=== PATIENT | male | born 1985 | race Caucasian/White ===

== ENCOUNTER 2018-02-03 09:34 | Emergency (ER) | payer MEDICAID ==
[~2018-02-03] VITALS: Ht 175.3 cm; Wt 68.2 kg
[2018-02-03 09:58] LABS: BASOPHILS # (AUTO) 0.1 X10'3 (0-0.2); BASOPHILS % (AUTO) 1.5 % (0-1); EOSINOPHILS # (AUTO) 0.1 X10'3 (0-0.9); EOSINOPHILS % (AUTO) 1.7 % (0-6); HEMATOCRIT 47.5 % (42.0-52.0); HEMOGLOBIN 16.1 g/dl (14.0-17.9); LYMPHOCYTES # (AUTO) 3.1 X10'3 (1.1-4.8); LYMPHOCYTES % (AUTO) 36.7 % (21-51); MEAN CORPUSCULAR HEMOGLOBIN 31.2 PG (27.0-31.0); MEAN CORPUSCULAR HGB CONC 33.8 % (33.0-36.5); MEAN CORPUSCULAR VOLUME 92.3 FL (78-98); MEAN PLATELET VOLUME 7.6 FL (7.4-10.4); MONOCYTES # (AUTO) 0.6 X10'3 (0-0.9); MONOCYTES % (AUTO) 7.3 % (2-12); NEUTROPHILS # (AUTO) 4.5 X10'3 (1.8-7.7); NEUTROPHILS % (AUTO) 52.8 % (42-75); PLATELET COUNT 237 X10'3 (140-440); RED BLOOD COUNT 5.15 X10'6 (4.70-6.10); WHITE BLOOD COUNT 8.5 X10'3 (4.5-11.0)
[2018-02-03 10:12] LABS: ALANINE AMINOTRANSFERASE 27 U/L (12-78); ALBUMIN 4.1 G/DL (3.4-5.0); ALBUMIN/GLOBULIN RATIO 1.2 (1.1-1.5); ALKALINE PHOSPHATASE 70 IU/L (46-116); ANION GAP 10 (8-16); ASPARTATE AMINO TRANSFERASE 18 U/L (10-37); BILIRUBIN,TOTAL 0.6 MG/DL (0.1-1.0); BLOOD UREA NITROGEN 5 MG/DL (7-18); BUN/CREATININE RATIO 3.6 (5.4-32.0); CALCIUM 9.3 MG/DL (8.5-10.1); CHLORIDE 102 MMOL/L (99-107); GLUCOSE 177 MG/DL (70-104); POTASSIUM 3.6 MMOL/L (3.5-5.1); SODIUM 139 MMOL/L (135-145); TOTAL CARBON DIOXIDE 27.3 MMOL/L (24-32); TOTAL PROTEIN 7.6 G/DL (6.4-8.2); eGFR 58 ML/MIN
[2018-02-03 10:23] LABS: CLARITY,URINE SLIGHTLY CLOUDY (Clear); COLOR,URINE YELLOW (Yellow); GLUCOSE, URINE NEGATIVE (Neg); KETONES,URINE TRACE mg/dl (Neg); LEUKOCYTE ESTERASE ,URINE NEGATIVE (Neg); NITRITES, URINE NEGATIVE (Neg); OCCULT BLOOD,URINE LARGE (Neg); PH,URINE >=9.0 (4.8-8.0); PROTEIN,URINE 100 mg/dl (Neg); UROBILINOGEN,URINE 0.2 E.U/dL (0.2-1.0)
[2018-02-03] MEDS ORDERED: ketorolac trometh. 30mg/ml inj. IV ONE (10:30)
[2018-02-03] MEDS ORDERED: ondansetron/PF 4mg/2ml inj IV ONE (10:30)
[2018-02-03] MEDS ORDERED: normal saline 1000ML IV soln IVB ONE (10:30)
[2018-02-03] MEDS ORDERED: ketorolac tromethamine 15mg/ml inj. IV ONE (10:35)
[2018-02-03 10:42] LABS: UA COLLECTION TYPE CLN CATCH MIDSTREAM
[2018-02-03 10:47] LABS: RBC,URINE 20-50 /HPF (0-2); SQUAMOUS EPITHELIAL CELL,UR FEW /LPF (FEW)
[2018-02-03 10:48] LABS: BACTERIA,URINE FEW /HPF (Neg)
[2018-02-03 10:49] LABS: AMORPHOUS PHOSPHATES 2+
[2018-02-03] MEDS ORDERED: HYDR-565 PO (11:46)
[2018-02-03] MEDS ORDERED: IBUP-1985 PO (11:46)
[2018-02-03] MEDS ORDERED: FLO0.4C PO (11:46)
[2018-02-03 12:20] VITALS: BP 127/68
== END 2018-02-03 12:21 | disposition home or self-care (01) ==
LOC: ER 09:34
DX: N20.0 Calculus of kidney (principal); Z87.442 Personal history of urinary calculi; Z79.899 Other long term (current) drug therapy
CPT/HCPCS: 36415; 74018; 74176; 80053; 81001; 85025; 87088; 96374; 96375; 99285; J1885; J2405; J7030

== ENCOUNTER 2025-01-19 12:01 | Emergency (ER) | payer MEDICAID ==
[~2025-01-19] VITALS: Ht 175.3 cm; Wt 72.8 kg
[~2025-01-19 12:01] MED LIST: IBUP-1985 PO
[2025-01-19 12:37] LABS: MEAN PLATELET VOLUME 7.2 FL (7.4-10.4); RED CELL DISTRIBUTION WIDTH 13.3 % (11.5-14.5)
[2025-01-19 12:53] LABS: CREATININE 1.17 MG/DL (0.60-1.10); TOTAL CARBON DIOXIDE 30.1 MMOL/L (24-32); eCRCL 84 ML/MIN; eGFR 69 ML/MIN
--- NOTE | 2025-01-19 13:35 | Physician Documentation ---
History of Present Illness Chief Complaint: Abdominal Pain Stated Complaint: ABDOMINAL PAIN X5 DAYS Time Seen by MD: 13:11 Primary Medical Doctor: NONE HPI Year old male presents to the ER with complaints of abdominal pain x5 days. Patient reports that his abdominal pain is located in the lower left quadrant of his abdomen. Patient reports that the pain has not migrated to any other loc ations with the in his abdomen over the course of the five days and has remained isolated to the lower left quadrant. Patient denies fever nausea vomiting diarrhea her any other accompanying symptoms at this time. The patient reports that he ate at [employer] approximately five days ago while traveling with his brother here within an hour developed acute abdominal pain that has remained constant. Patient has tried [id number] pain relievers without any relief. Patient denies any other significant past medical history at this time. Medication Reconciliation Allergies: Coded Allergies: No Known Allergies (Unverified , 01/19/25) Scheduled Amox Tr/Potassium Clavulanate 875/125 MG (Augmentin 875/125 MG), 1 TAB PO Q12H Ibuprofen (Ibuprofen), 1 TAB PO Q8H Past Medical History Past Medical History: Kidney Stones Past Surgical History: no surgical history Drug Use: none Lives In: Home Occupation: employed Physical Exam Vital Signs: Temperature: 98.3, Source: Temporal, Heart Rate: 89, Respiratory Rate: 18, BP: 118/74, Pulse Oximetry: 98, Weight: 72.800 Physical Exam VITALS: Reviewed and as above. GENERAL: Alert, no apparent distress. HEENT: Normocephalic, atraumatic, PERRL, EOMI, dry mucosa, no erythema RESPIRATORY: Lungs clear, normal breath sounds, no respiratory distress. CHEST: No accessory muscle use, no retractions CV: Regular rate, rhythm, no edema, no murmur, No: JVD GI: Soft, non-tender, bowels sounds present, pain with palpation over the left lower quadrant BACK: No CVA tenderness, or swelling MUSCULOSKELETAL No deformities, no edema SKIN: Warm and dry, no rash NEURO: Oriented x4, No motor or sensory deficit PSYCH: Normal mood and affect, no agitation Progress Results/Orders Results/Orders Vital Signs 01/19/25 12:13 Temp 98.3 Pulse 89 Resp 18 B/P (MAP) 118/74 Pulse Ox 98 Laboratory Tests Test 01/19/25 12:24 White Blood Count 14.0 H Red Blood Count 4.88 Hemoglobin 15.3 Hematocrit 44.5 Mean Corpuscular Volume 91.3 Mean Corpuscular Hemoglobin 31.3 H Mean Corpuscular Hemoglobin Concent 34.3 Red Cell Distribution Width 13.3 Platelet Count 220 Mean Platelet Volume 7.2 L Neutrophils (%) (Auto) 69.0 Lymphocytes (%) (Auto) 17.7 L Monocytes (%) (Auto) 11.5 Eosinophils (%) (Auto) 0.9 Basophils (%) (Auto) 0.9 Neutrophils # (Auto) 9.7 H Lymphocytes # (Auto) 2.5 Monocytes # (Auto) 1.6 H Eosinophils # (Auto) 0.1 Basophils # (Auto) 0.1 CBC Comment Sodium Level 137 Potassium Level 3.9 Chloride Level 102 Carbon Dioxide Level 30.1 Anion Gap 5 L Blood Urea Nitrogen 8 Creatinine 1.17 H Estimated GFR/1.73 m2 69 BUN/Creatinine Ratio 6.8 L Glucose Level 87 Calcium Level 8.8 Total Bilirubin 0.9 Aspartate Amino Transf (AST/SGOT) 13 Alanine Aminotransferase (ALT/SGPT) 25 Alkaline Phosphatase 81 Total Protein 7.3 Albumin 3.6 Globulin 3.7 Albumin/Globulin Ratio 1.0 L Amylase Level 30 Lipase 19 Chemistry Comments Medical Decision Making Findings Abdominal exam without peritoneal signs. No evidence of acute abdomen at this time. Well appearing. Given work up, low suspicion for acute hepatobiliary disease (including acute cholecystitis or cholangitis), acute pancreatitis (neg lipase), PUD (including gastric perforation), acute infectious processes (pneumonia, hepatitis, pyelonephritis), acute appendicitis, vascular catastrophe, bowel obstruction, viscus perforation, or testicular torsion. Presentation and diagnostics most consistant with an acute episode of diverticulitis. Presentation not consistent with other acute, emergent causes of abdominal pain at this time. Departure Disposition: 01 HOME / SELF CARE / HOMELESS Impression: Primary Impression: Diverticulitis Condition: Stable Discharge Instructions: Diverticulitis, [id number] Additional Instructions: See your diagnosed with an acute episode of diverticulitis. We discussed eating a soft diet for the next 5-7 days making sure the your increasing your fluids reddened that time and throughout. Following up with your primary care provider. See your prescribed Augmentin 875 mg twice a day for 10 days please take this medication in its entirety and as prescribed. If you have any questions please feel free to call us here or reports your local pharmacy for additional information. If your symptoms worsen or you develop any new symptoms please report back to the emergency department as soon as possible. If you develop any of the red flag symptoms that we discussed here in the ER today please return immediately. Referrals: NO PRIMARY CARE PROVIDER (PCP) Prescriptions Amox Tr/Potassium Clavulanate 875/125 MG (Augmentin 875/125 MG) 875 Mg-125 Mg Tablet 1 TAB PO Q12H for 10 Days, #20 TAB Prov: BART CAPONE 01/19/25 Education Educated: Patient Educated regarding: diagnosis, treatment, need for follow up Signature Scribe Signature: . Attestation: . BART CAPONE Jan 19, 2025 13:35 ZEB POLANCO MD Jan 20, 2025 06:48
[2025-01-19 14:11] LABS: LEUKOCYTE ESTERASE ,URINE NEGATIVE (Neg); NITRITES, URINE NEGATIVE (Neg); OCCULT BLOOD,URINE TRACE-INTACT (Neg)
[2025-01-19 14:12] LABS: UA COLLECTION TYPE CLN CATCH MIDSTREAM
[2025-01-19 14:17] LABS: SQUAMOUS EPITHELIAL CELL,UR FEW /LPF (FEW)
[2025-01-19 14:18] LABS: MUCUS STRANDS MODERATE /LPF (Neg); RENAL CELLS, URINE FEW /HPF
--- NOTE | 2025-01-19 15:51 | RADIOLOGY REPORT ---
Exam: CT CT ABDOMEN PELVIS History: Abdominla pain Comparison Study: None Technique: Multidetector spiral CT of the abdomen and pelvis was performed from lung bases to pubic symphysis. Imaging was performed without IV contrast. Axial, coronal and sagittal multiplanar reform ats were obtained from the axial data set by the technologist. Radiation dose : Abdomen/Pelvis: CTDIvol 8 mGy, DLP 430 mGy*cm. Findings: Evaluation of solid organs is limited due to lack of intravenous contrast use. Lung Bases: No acute or significant lung base finding. Normal heart size. No pleural or pericardial effusion. Liver: The liver is normal in size. No focal lesions. Gallbladder and biliary Tree: Unremarkable Spleen: Unremarkable Pancreas: The pancreas is grossly normal in appearance. Adrenal Glands: Unremarkable Kidneys: Kidneys are grossly normal without calculi or hydronephrosis. Bladder: Grossly unremarkable for degree of distention. Bowel: The stomach is grossly normal in appearance. Small bowel and colon are normal in caliber and d istribution. Normal appendix is visualized in the right lower quadrant without findings of appendicit is. Colonic diverticulosis. Wall thickening of the descending colon with adjacent stranding and flui d. No definite loculated fluid collection. Ascites: Absent Lymphadenopathy: No mesenteric, retroperitoneal or periportal lymphadenopathy. Abdominal wall and Mesentery: Stranding and fluid along the left paracolic gutter as above. Vasculature: The visualized abdominal aorta is normal in size and caliber. Evaluation of abdominal a nd pelvic vessels is limited due to lack of intravenous contrast. Pelvic Organs: Unremarkable Musculoskeletal: No aggressive focal bony lesions, acute fractures or dislocation. IMPRESSION: 1. Limited evaluation without intravenous contrast. Scattered colonic diverticulosis. Wall thickenin g of the descending colon with adjacent stranding and fluid. No definite loculated abscess. Suspect a cute diverticulitis or colitis. Consider follow-up exam with intravenous contrast. Clinical correlat ion and continued follow-up is recommended. Radiation optimization: All CT scans at this facility use at least one of these dose optimization kimmy hniques: Automated exposure control mA and/or kV adjustment per patient size (includes targeted exams where dose is matched to clinical indication) or iterative reconstruction. HS:Y
[2025-01-19 16:46] VITALS: BP 118/69; PULSE 79; RESP 15; O2SAT 98
[2025-01-19] MEDS ORDERED: AMOX-580 PO (16:50)
[2025-01-19 17:25] VITALS: TEMP 98.3
== END 2025-01-19 17:28 | disposition home or self-care (01) ==
LOC: ER 12:01
DX: K57.32 Diverticulitis of large intestine without perforation or abscess without bleeding (principal)
CPT/HCPCS: 36415; 74176; 80053; 81001; 82150; 83605; 83690; 85025; 99284